=== PATIENT | male | born 1980 | race Caucasian/White ===

== ENCOUNTER 2019-09-01 02:24 | Emergency (ER) | payer SELFPAY ==
[~2019-09-01] VITALS: Ht 177 cm; Wt 108.0 kg
[~2019-09-01 02:24] MED LIST: ACYC800T PO; ONDA-42 SL; phentermine
[2019-09-01] MEDS ORDERED: ASPIRIN 81 MG CHEW (CHILDREN'S ASA) ONE (02:29)
[2019-09-01] MEDS ORDERED: NITROGLYCERIN 0.4 MG SL TABS BTL 25'S SL ONE (02:31)
--- NOTE | 2019-09-01 02:34 | ED Chest Pain ---
General Stated Complaint: CHEST PAIN Source: patient Exam Limitations: no limitations History of Present Illness Date Seen by Provider: Sep 01, 2019 Time Seen by Provider: 02:25 Initial Comments Patient presents ER by private conveyance from home with his and chief complaint that about 2200 last night he began to experience some substernal midline chest pain nonradiating. The pain did not wake him as he was already asleep trying to go to sleep. He was not doing anything strenuous. He has been sweating ever since writhing in 10 out of 10 pain. He says it is pressure and crushing. He is not having any nausea fevers, shortness of breath, cough. He does not have a history of coronary disease but he does have high blood pressure and high cholesterol for which she is on medicines. He follows with Dr. Rich. 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 He is not feeling any palpitations, racing heart rate. He has a grandfather who in his 50s of heart attack but no primary family members. He denies diabetes, thyroidism, previous coronary disease or smoking. He does chew tobacco about a can per day. He denies any recreational drugs. Drinks beer on occasion with his last drink being 3 days ago. Allergies and Home Medications Allergies Coded Allergies: No Known Drug Allergies (Unverified , 02/24/14) Home Medications Acyclovir 800 Mg Tablet, 800 MG PO DAILY, (Reported) Ondansetron Hcl 4 Mg Tab, 4 MG SL Q4H FOR NAUSEA AND VOMITING Prescribed by: KARI COSTELLO on 02/24/14 1247 Patient Home Medication List Home Medication List Reviewed: Yes Review of Systems Review of Systems Constitutional: No chills; diaphoresis; No fever EENTM: No Blurred Vision, No Double Vision Respiratory: Denies Cough, Denies Shortness of Air Cardiovascular: See HPI, Chest Pain; Denies Edema, Denies Irregular Heart Rate, Denies Lightheadedness Gastrointestinal: Denies Abdomen Distended, Denies Abdominal Pain Genitourinary: Denies Burning, Denies Discharge Musculoskeletal: No back pain, No joint pain Skin: No pruritus, No rash Psychiatric/Neurological: Denies Headache, Denies Numbness, Denies Paresthesia Endocrine: Excessive Sweating; Denies Flushing All Other Systems Reviewed Negative Unless Noted: Yes Past Qarfnaw-Jjurqy-Fmwvmf Hx Patient Social History Alcohol Use: Occasionally Uses Alcohol Beverage of Choice: Beer Recreational Drug Use: No Smoking Status: Never a Smoker Type Used: Smokeless Tobacco (1 can per day) Recent Foreign Travel: No Contact w/Someone Who Travel: No Physical Exam Vital Signs Vital Signs - First Documented 09/01/19 02:24 Temp 36.2 Pulse 60 Resp 16 B/P (MAP) 155/96 (115) Pulse Ox 99 O2 Delivery Room Air Capillary Refill : Height, Weight, BMI Height: 5'11" Weight: 230lbs. oz. 104.958063pu; BMI Method:Stated General Appearance: Anxious, Moderate Distress HEENT: PERRL/EOMI, Pharynx Normal, Moist Mucous Membranes Neck: Full Range of Motion, Normal Inspection Respiratory: Chest Non Tender, Lungs Clear, Normal Breath Sounds, No Accessory Muscle Use, No Respiratory Distress Cardiovascular: Regular Rate, Rhythm, No Edema, No Murmur, Normal Peripheral Pulses Gastrointestinal: Normal Bowel Sounds, Non Tender, Soft Extremity: Normal Capillary Refill, Normal Inspection Neurologic/Psychiatric: Alert, Oriented x3, No Motor/Sensory Deficits Skin: Normal Color, Warm/Dry Progress/Results/Core Measures Results/Orders Lab Results Laboratory Tests Test 09/01/19 02:32 Range/Units White Blood Count 11.5 H 4.3-11.0 10^3/uL Red Blood Count 5.21 4.35-5.85 10^6/uL Hemoglobin 16.8 13.3-17.7 G/DL Hematocrit 47 40-54 % Mean Corpuscular Volume 91 80-99 FL Mean Corpuscular Hemoglobin 32 25-34 PG Mean Corpuscular Hemoglobin Concent 36 32-36 G/DL Red Cell Distribution Width 11.7 10.0-14.5 % Platelet Count 262 130-400 10^3/uL Mean Platelet Volume 10.0 7.4-10.4 FL Neutrophils (%) (Auto) 53 42-75 % Lymphocytes (%) (Auto) 33 12-44 % Monocytes (%) (Auto) 10 0-12 % Eosinophils (%) (Auto) 4 0-10 % Basophils (%) (Auto) 1 0-10 % Neutrophils # (Auto) 6.1 1.8-7.8 X 10^3 Lymphocytes # (Auto) 3.7 1.0-4.0 X 10^3 Monocytes # (Auto) 1.1 H 0.0-1.0 X 10^3 Eosinophils # (Auto) 0.5 H 0.0-0.3 10^3/uL Basophils # (Auto) 0.1 0.0-0.1 10^3/uL Prothrombin Time 12.1 L 12.2-14.7 SEC INR Comment 0.9 0.8-1.4 Activated Partial Thromboplast Time 26 24-35 SEC D-Dimer 0.37 0.00-0.49 UG/ML Sodium Level 137 135-145 MMOL/L Potassium Level 4.2 3.6-5.0 MMOL/L Chloride Level 96 L 98-107 MMOL/L Carbon Dioxide Level 29 21-32 MMOL/L Anion Gap 12 5-14 MMOL/L Blood Urea Nitrogen 13 7-18 MG/DL Creatinine 1.14 0.60-1.30 MG/DL Estimat Glomerular Filtration Rate > 60 BUN/Creatinine Ratio 11 Glucose Level 120 H 70-105 MG/DL Calcium Level 10.0 8.5-10.1 MG/DL Corrected Calcium 8.5-10.1 MG/DL Magnesium Level 2.1 1.6-2.4 MG/DL Total Bilirubin 0.5 0.1-1.0 MG/DL Aspartate Amino Transf (AST/SGOT) 27 5-34 U/L Alanine Aminotransferase (ALT/SGPT) 38 0-55 U/L Alkaline Phosphatase 74 40-136 U/L Myoglobin 53.0 10.0-92.0 NG/ML Troponin I < 0.30 <0.30 NG/ML Pro-B-Type Natriuretic Peptide 36.7 <75.0 PG/ML Total Protein 7.6 6.4-8.2 GM/DL Albumin 4.8 H 3.2-4.5 GM/DL Lipase 30 8-78 U/L My Orders Orders - MAYELIN WEATHERS Ekg Tracing (09/01/19 02:27) Continuous Ekg Monitoring (09/01/19 02:27) Aspirin Chewable Tablet (Baby Aspirin Ch (09/01/19 02:29) Cbc With Automated Diff (09/01/19 02:33) Magnesium (09/01/19 02:33) Chest 1 View Ap/Pa Only (09/01/19 02:33) Ekg Tracing (09/01/19 02:33) Comprehensive Metabolic Panel (09/01/19 02:33) Myoglobin Serum (09/01/19 02:33) Protime With Inr (09/01/19 02:33) Partial Thromboplastin Time (09/01/19 02:33) O2 (09/01/19 02:33) Lipid Panel (09/02/19 06:00) Aspirin Chewable Tablet (Baby Aspirin Ch (09/01/19 02:45) Nitroglycerin 0.4 Mg Btl 25's (Nitrostat (09/01/19 02:45) Ed Iv/Invasive Line Start (09/01/19 02:33) Lipase (09/01/19 02:33) Fibrin Degradation Products (09/01/19 02:33) Troponin I Fs (09/01/19 02:33) Probnp Fs (09/01/19 02:33) Nitroglycerin 0.4 Mg Btl 25's (Nitrostat (09/01/19 02:31) Morphine Injection (Morphine Injection (09/01/19 02:39) Morphine Injection (Morphine Injection (09/01/19 02:37) Morphine Injection (Morphine Injection (09/01/19 02:45) Ondansetron Injection (Zofran Injectio (09/01/19 02:45) Ondansetron Injection (Zofran Injectio (09/01/19 02:44) Ct Angio Chest W (09/01/19 02:55) Iohexol Injection (Omnipaque 350 Mg/Ml 1 (09/01/19 03:15) Received Contrast (Hold Metformin- Contr (09/01/19 03:15) Sodium Chloride Flush (Catheter Flush Sy (09/01/19 03:15) Ns (Ivpb) (Sodium Chloride 0.9% Ivpb Bag (09/01/19 03:15) Morphine Injection (Morphine Injection (09/01/19 03:08) Ua Culture If Indicated (09/01/19 03:14) Drug Screen Stat (Urine) (09/01/19 03:14) Pantoprazole Injection (Protonix Injecti (09/01/19 03:30) Fentanyl Injection (Sublimaze Injection (09/01/19 03:45) Ketorolac Injection (Toradol Injection) (09/01/19 04:30) Rx-Oxycodone/Apap 5-325 Mg (Rx-Percocet (09/01/19 04:30) Rx-Ondansetron Po (Rx-Zofran Po) (09/01/19 04:27) Medications Given in ED Current Medications Medications Dose Ordered Sig/Enrique Route Start Time Stop Time Status Last Admin Dose Admin Aspirin 324 mg ONCE ONCE PO 09/01/19 02:45 09/01/19 02:46 DC 09/01/19 02:32 324 MG Fentanyl Citrate 50 mcg ONCE ONCE IVP 09/01/19 03:45 09/01/19 03:46 DC 09/01/19 03:39 50 MCG Iohexol 125 ml ONCE ONCE IV 09/01/19 03:15 09/01/19 03:16 DC 09/01/19 03:31 125 ML Nitroglycerin 0.4 mg UD PRN SL 09/01/19 02:45 09/01/19 02:33 0.4 MG Ondansetron HCl 8 mg ONCE ONCE IVP 09/01/19 02:45 09/01/19 02:46 DC 09/01/19 02:50 8 MG Pantoprazole 40 mg ONCE ONCE IV 09/01/19 03:30 09/01/19 03:31 DC 09/01/19 03:39 40 MG Sodium Chloride 10 ml NEEDED PRN IV 09/01/19 03:15 09/01/19 03:31 10 ML Sodium Chloride 100 ml ONCE ONCE IV 09/01/19 03:15 09/01/19 03:16 DC 09/01/19 03:31 80 ML Vital Signs/I&O 09/01/19 02:24 Temp 36.2 Pulse 60 Resp 16 B/P (MAP) 155/96 (115) Pulse Ox 99 O2 Delivery Room Air Progress Progress Note #1: Time: 02:44 Progress Note Nitroglycerin did not help his pain. 4 of morphine made a modest dent in his pain. Plan to give him another 4 mg as well as some Zofran is to begin to be na useated after the morphine was given. He is satting 99% on room air. He is not writhing as much now. Other possibilities include pulmonary embolism however he is not tachycardic nor hypoxic. He does not look like marfanoid so dissection is far less likely at his age. We have established 2 IVs and labs. Initial EKG has a lot of artifact. As soon as we get him relax enough we will obtain a better EKG. He has good breath sounds bilaterally and no evidence of pneumothorax on chest x-ray. Is a poorly penetrated a to P1 view chest x-ray but there may be some widening mediastinum. He has not been having vomiting or a history consistent with Boerhaave's or mediastinitis. He does not have muffled cardiac sounds. He does not have a widened pulse pressure with a blood pressure currently 155/96. ACS is still top on the differential. Progress Note #2: Time: 02:57 Progress Note With a total of 8 mg of morphine we were able to control his pain sufficiently that we can get a good EKG. Second EKG did not do a straight any relevant ST changes. Plan to get a CT angiogram with contrast looking for evidence of aortic dissection, tamponade, PE or other emergent, life-threatening source of his severe chest pain. Patient is stable blood pressure 149/99. Bedside ultrasound failed to demonstrate any free fluid surrounding the heart. Progress Note #3: Time: 04:25 Progress Note Patient's pain to 6 out of 10. Regular her a shot of Toradol put him out on some oxycodone, ibuprofen and pantoprazole with Zofran as needed. Plan to get a outpatient ultrasound today or tomorrow and follow-up with Dr. Rich. Offered to set him up surgeon but he prefer to use his primary care provider at this time. Initial ECG Impression Date: Sep 01, 2019 Initial ECG Impression Time: 02:28 Initial ECG Rate: 64 Initial ECG Rhythm: Normal Sinus Initial ECG Intervals: Normal Initial ECG Impression: Normal, Nonspecific Changes Initial ECG Comparisson: No Previous ECG Available Comment Some respiratory motion artifact. In the lateral leads there is about a half to [address] elevation in leads V4, V5 and V6. This could correlate to ischemia. EKG : EKG Time: 02:52 Rate: 51 Rhythm: Normal Sinus Intervals: Normal ECG Comparisson: Unchanged ECG Impression: Normal, Nonspecific Changes Comment No clinically relevant ST elevation or depression. Diagnostic Imaging Diagonstic Imaging: Xray Plain Films/CT/US/NM/MRI: chest (1v) Comments No acute cardiopulmonary processes noted. Reviewed: Reviewed by Me Diagonstic Imaging: CT Plain Films/CT/US/NM/MRI: chest (angiogram) Comments No pneumonia, pneumothorax, pulmonary embolism, pleural effusion, pericardial effusion. There is a copious amount of stones and sludge in the base of the gallbladder without any pericholecystic fluid or stranding or evidence of ductal dilatation or obstruction. No pulmonary embolism. Distended gallbladder with multiple stones. Correlate with a right upper quadrant ultrasound. Reviewed: Reviewed [place] Study, Reviewed by Me Departure Impression Primary Impression: Choledocholithiasis Additional Impression: Biliary colic Disposition: HOME, SELF-CARE Condition: Improved Departure-Patient Inst. Decision time for Depature: 04:26 Referrals: MADDY CALLAWAY DO NO,LOCAL PHYSICIAN (PCP) Primary Care Physician PREET RICH MD Patient Instructions: Cholecystectomy, Laparoscopic Surgery, Gallstones (DC) Add. Discharge Instructions: You have stones in your gallbladder that will occasionally pass and when they do they can be quite painful and explain your symptoms. If you have pain use Tylenol 650 mg every 8 hours in addition to ibuprofen 800 mg every 8 hours. Oxycodone 1 tablet every 4 hours as needed for breakthrough pain. Ondansetron one tablet under the tongue every 6 hours as needed for nausea. Pantoprazole 40 mg or omeprazole 40 mg daily. Call this morning to set up an outpatient ultrasound. Follow-up with your primary care doctor or the general surgeon Dr. Callaway for ultrasound results and management of gallstones. Do not eat greasy, spicy, dairy foods. Return to the ER. You have intractable nausea, vomiting, pain or fever despite medications. Scripts Pantoprazole Sodium (Pantoprazole Sodium) 40 Mg Tablet.dr 40 MG PO DAILY for 30 Days, #30 TAB 0 Refills Prov: MAYELIN WEATHERS 09/01/19 Ondansetron (Ondansetron Odt) 4 Mg Tab.rapdis 4 MG PO Q6H PRN for NAUSEA/VOMITING, #15 TAB 0 Refills Prov: MAYELIN WEATHERS 09/01/19 Oxycodone HCl/Acetaminophen (Oxycodone-Acetaminophen 5-325) 1 Each Tablet 1-2 EACH PO Q4H PRN for PAIN-MODERATE MDD 6 for 3 Days, #20 TAB 0 Refills Prov: MAYELIN WEATHERS 09/01/19 Work/School Note: Work Release Form Date Seen in the Emergency Department: Sep 01, 2019 Return to Work: Sep 03, 2019 Restrictions: No Restrictions Copy Copies To 1: MADDY CALLAWAY DO; PREET RICH MD, TITUS J Sep 01, 2019 02:34 POS
[2019-09-01] MEDS ORDERED: morphine INJ 10 MG/ML 1ML (SYR OR VIAL) ONE (02:37)
[2019-09-01] MEDS ORDERED: morphine INJ 10 MG/ML 1ML (SYR OR VIAL) IVP STA ×3 (02:39→03:08)
[2019-09-01 02:40] LABS: WHITE BLOOD COUNT 11.5 10^3/uL (4.3-11.0)
[2019-09-01 02:41] LABS: BASOPHILS # (AUTO) 0.1 10^3/uL (0.0-0.1); BASOPHILS % (AUTO) 1 % (0-10); EOSINOPHILS # (AUTO) 0.5 10^3/uL (0.0-0.3); EOSINOPHILS % (AUTO) 4 % (0-10); HEMATOCRIT 47 % (40-54); HEMOGLOBIN 16.8 G/DL (13.3-17.7); LYMPHOCYTES # (AUTO) 3.7 X 10^3 (1.0-4.0); LYMPHOCYTES % (AUTO) 33 % (12-44); MEAN CORPUSCULAR HEMOGLOBIN 32 PG (25-34); MEAN CORPUSCULAR HGB CONC 36 G/DL (32-36); MEAN CORPUSCULAR VOLUME 91 FL (80-99); MONOCYTES # (AUTO) 1.1 X 10^3 (0.0-1.0); MONOCYTES % (AUTO) 10 % (0-12); NEUTROPHILS # (AUTO) 6.1 X 10^3 (1.8-7.8); NEUTROPHILS % (AUTO) 53 % (42-75); PLATELET COUNT 262 10^3/uL (130-400); RED CELL DISTRIBUTION WIDTH 11.7 % (10.0-14.5)
[2019-09-01] MEDS ORDERED: ONDANSETRON 4 MG/2 ML (SDV) Z0FRAN ONE (02:44)
[2019-09-01] MEDS ORDERED: ONDANSETRON 4 MG/2 ML (SDV) Z0FRAN IVP ONE (02:45)
[2019-09-01] MEDS ORDERED: ASPIRIN 81 MG CHEW (CHILDREN'S ASA) PO ONE (02:45)
[2019-09-01] MEDS ORDERED: NITROGLYCERIN 0.4 MG SL TABS BTL 25'S SL PRN (02:45)
[2019-09-01 02:56] LABS: INR 0.9 (0.8-1.4); PROTHROMBIN TIME PATIENT 12.1 SEC (12.2-14.7)
[2019-09-01 03:04] LABS: ALKALINE PHOSPHATASE 74 U/L (40-136); BILIRUBIN,TOTAL 0.5 MG/DL (0.1-1.0); BUN/CREATININE RATIO 11; CARBON DIOXIDE 29 MMOL/L (21-32); CHLORIDE 96 MMOL/L (98-107); CREATININE SERUM 1.14 MG/DL (0.60-1.30); GFR ESTIMATED > 60; GLUCOSE 120 MG/DL (70-105); MAGNESIUM 2.1 MG/DL (1.6-2.4); POTASSIUM 4.2 MMOL/L (3.6-5.0); SODIUM 137 MMOL/L (135-145)
[2019-09-01 03:05] LABS: ALANINE AMINOTRANSFERASE 38 U/L (0-55); ALBUMIN 4.8 GM/DL (3.2-4.5); LIPASE 30 U/L (8-78); TOTAL PROTEIN 7.6 GM/DL (6.4-8.2)
[2019-09-01] MEDS ORDERED: IOHEXOL 350 MG/ML 150 ML (OMNIPAQUE 350) VIAL IV ONE (03:15)
[2019-09-01] MEDS ORDERED: NS 100 ML (IVPB) BAG IV ONE (03:15)
[2019-09-01] MEDS ORDERED: HOLD METFORMIN - RECEIVED CONTRAST 20 ML VIAL IV SCH (03:15)
[2019-09-01] MEDS ORDERED: CATHETER FLUSH 10 ML SYR IV PRN (03:15)
[2019-09-01] MEDS ORDERED: PANTOPRAZOLE 40 MG (PROTONIX) VIAL IV ONE (03:30)
[2019-09-01] MEDS ORDERED: fentaNYL INJECTION 100 MCG/2 ML AMP IVP ONE (03:45)
[2019-09-01] MEDS ORDERED: RX-ONDANSETRON 4 MG ODT (ZOFRAN) PPK #4 PO STA (04:27)
[2019-09-01] MEDS ORDERED: RX-OXYCODONE/APAP 5-325 MG #4 TAB PK PO PRN (04:30)
[2019-09-01] MEDS ORDERED: KETOROLAC 30 MG/ML VIAL IVP ONE (04:30)
[2019-09-01] MEDS ORDERED: PANT40TA3 PO (04:31)
[2019-09-01] MEDS ORDERED: OXYC-471 PO (04:31)
[2019-09-01] MEDS ORDERED: ONDA4TAB11 PO (04:31)
[2019-09-01 04:41] VITALS: BP 153/94
--- NOTE | 2019-09-01 06:23 | Diagnostic Imaging Report ---
PROCEDURE: CT angiography of the chest with contrast. TECHNIQUE: Multiple contiguous axial images were obtained through the chest after uneventful bolus administration of intravenous contrast. 3D reconstructed CTA MIP acquisitions were also performed. Auto Exposure Controls were utilized during the CT exam to meet ALARA standards for radiation dose reduction. INDICATION: Shortness of breath, chest pain, pulmonary embolism COMPARISON: None FINDINGS: The heart, pulmonary arteries and aorta appear grossly normal. No pulmonary embolism is seen. There is no lymphadenopathy. The lungs are clear. There is no pericardial or pleural effusion noted. No focal infiltrate is identified. There is no pneumothorax. Osseous structures are age-appropriate. Visualized upper abdominal solid organs are normal. Multiple gallstones are present. IMPRESSION: 1. Negative CT angio chest. 2. Cholelithiasis without cholecystitis. Agree with preliminary report Dictated by: Dictated on workstation # [id number]
--- NOTE | 2019-09-01 06:24 | Diagnostic Imaging Report ---
INDICATION: Shortness of breath, chest pain COMPARISON: None FINDINGS: Single view of the chest demonstrates clear lungs bilaterally. The heart is normal. There is no pneumothorax. The osseous structures are normal. IMPRESSION: Negative chest Dictated by: Dictated on workstation # [id number]
== END 2019-09-01 04:41 | disposition home or self-care (01) ==
LOC: EDUNIT# 02:24 → ER FS 02:27
DX: K80.50 Calculus of bile duct without cholangitis or cholecystitis without obstruction (principal); F17.220 Nicotine dependence, chewing tobacco, uncomplicated
CPT/HCPCS: 36415; 71045; 71275; 80053; 83690; 83735; 83874; 83880; 84484; 85025; 85379; 85610; 85730; 93005

== ENCOUNTER 2019-10-01 05:40 | Outpatient (CLI) | payer OTHER ==
[~2019-10-01] VITALS: Ht 177.8 cm; Wt 111.4 kg
[~2019-10-01 05:40] MED LIST changes: +ONDA4TAB11 PO; +OXYC-471 PO; +PANT40TA3 PO
[2019-10-01] MEDS ORDERED: PANT40TA3 PO (10:22)
[2019-10-01] MEDS ORDERED: AMOX500C2 PO (10:22)
[2019-10-01] MEDS ORDERED: METO-370 PO (10:22)
== END 2019-10-01 10:28 | disposition home or self-care (01) ==
LOC: PREOP 05:40
PROVIDERS: ATTEND Surgery
DX: Z01.818 Encounter for other preprocedural examination (principal)

== ENCOUNTER 2019-10-03 09:33 | Day surgery (SDC) | payer OTHER ==
[2019-10-03] VITALS (11 sets, daily range): BP systolic 122–147; BP diastolic 77–98
[~2019-10-03] VITALS: Ht 177.8 cm; Wt 111.4 kg
[~2019-10-03 09:33] MED LIST changes: +AMOX500C2 PO; +METO50TA7 PO
[2019-10-03] MEDS ORDERED: IOPAMIDOL 61% 30 ML (ISOVUE 300) VIAL IV ONE (09:35)
[2019-10-03] MEDS ORDERED: BUP/EPI 0.5% 1:200,000 (SENSORCAINE) 30 ML VIAL ONE (09:35)
[2019-10-03] MEDS ORDERED: ceFAZolin 2 GM/50 ML NS 50 ML IV ONE (09:45)
--- NOTE | 2019-10-03 10:19 | Progress Note-Pre Operative ---
Pre-Operative Progress Note H&P Reviewed The H&P was reviewed, patient examined and no changes noted. Time Seen by Provider: 10:17 Date H&P Reviewed: Oct 03, 2019 Time H&P Reviewed: 10:16 Pre-Operative Diagnosis: Cholelithiasis/Cholecystitis MADDY CALLAWAY DO Oct 03, 2019 10:19
[2019-10-03] MEDS ORDERED: LIDOCAINE PF 2% 5 ML (XYLOCAINE) VIAL ONE (10:23)
[2019-10-03] MEDS ORDERED: MIDAZOLAM 2 MG/2 ML (VERSED) VIAL ONE (10:23)
[2019-10-03] MEDS ORDERED: NEOSTIGMINE 3 MG/3 ML VIAL ONE (10:23)
[2019-10-03] MEDS ORDERED: ONDANSETRON 4 MG/2 ML (SDV) Z0FRAN ONE (10:23)
[2019-10-03] MEDS ORDERED: ROCURONIUM 10 MG/ML 5 ML SYRINGE IV ONE (10:23)
[2019-10-03] MEDS ORDERED: DEXAMETHASONE 10 MG/ML (DECADRON) 1 ML VIAL ONE (10:23)
[2019-10-03] MEDS ORDERED: SEVOFLURANE (ULTANE) 15 ML INHAL SOLN ONE (10:23)
[2019-10-03] MEDS ORDERED: proPOfol 200 MG/20 ML (DIPRIVAN) VIAL IV ONE (10:23)
[2019-10-03] MEDS ORDERED: fentaNYL INJECTION 100 MCG/2 ML AMP ONE ×2 (10:23→11:35)
[2019-10-03] MEDS ORDERED: GLYCOPYRROLATE 0.2 MG/ML (ROBINUL) 2 ML VIAL ONE (10:23)
[2019-10-03] MEDS: LACTATED RINGERS 1,000 ML IV PRN ×2 (10:27→11:29)
--- NOTE | 2019-10-03 11:50 | Progress Note-Post Operative ---
Post-Operative Progess Note Surgeon (s)/Auto Overhauler (s) Surgeon MADDY CALLAWAY DO Auto Overhauler: Yury Pre-Operative Diagnosis Cholelithiasis/Cholecystitis Post-Operative Diagnosis same pending Procedure & Operative Findings Date of Procedure 10/03/19 Procedure Performed/Findings Lap ivana with IOC Anesthesia Type GET Estimated Blood Loss Estimated blood loss (mL): scant Specimens/Packing Specimens Removed GB and contents MADDY CALLAWAY DO Oct 03, 2019 11:50
[2019-10-03] MEDS ORDERED: ACHD5005 PO (11:51)
--- NOTE | 2019-10-03 11:52 | Discharge Inst-Surgical ---
Discharge Inst-Surgical Depart Medication/Instructions New, Converted or Re-Newed RX: RX Given to Pt/Family Patient Instructions Follow up Appt: Make appointment for 1 week. [phone] Instructions: No lifting greater than 20 pounds. No strenuous activity. May shower in 24 hours, no tub bath or soaking. Use incentive spirometer at home as directed. No Smoking Skin/Wound Care: May remove bandages in am. You need to leave the Dermabond on incision it will fall off on it's own. Symptoms to Report: Appetite Changes, Extremity Discoloration, Numbness/Tingling, Swelling Increased, Bleeding Excessive, Eyesight Changes, Pain Increased, Urine Color Change, Constipation(Persistent), Fever over 101 degree F, Pain/Pressure in chest, Urinating Difficulty, Cough Up/Vomit Blood, Heart Beat Irreg/Pounding, Pain/Pressure in jaw, Cramps in feet or legs, Lightheadedness, Pain/Pressure in shoulder, Diarrhea(Persistent), Memory Changes Suddenly, Questions/Concerns, Weight gain consecutive days, Dizziness/Fainting, Nausea/Vomiting, Shortness of Breath, Weight gain over 2 pounds If questions or concerns contact your physician Or seek help at emergency department. Activity Activity as Tolerated: Yes Activity Instructions: Avoid Stress to Incision Driving Instructions: No Driving/Refer to Diet Discharge Diet: Avoid Fatty Foods, Low Fat/Low Cholesterol Diet After 24 Hours: Clear Liquid if Nauseous If Any Problems/Questions/Issu: Contact Your Physician, Go to Emergency Room Skin/Wound Care Infection Signs and Symptoms: Increased Redness, Foul Odor of Wound, Increased Drainage, Skin Itchy or Has a Rash, Increased Swelling, Temperature Above 101 F Wound Care Comment: heating pad to shoulder or neck for pain Bathing Instructions: Shower Stitches/[place]/Dermabond Dis: Dermabond Ice Pack: Ice On and Off Site (as needed for pain at incisions) MADDY CALLAWAY DO Oct 03, 2019 11:52
[2019-10-03] MEDS ORDERED: KETOROLAC 30 MG/ML VIAL ONE (12:02)
[2019-10-03] MEDS ORDERED: HYDROmorphone 2 MG/ML VIAL (DILAUDID) ONE (12:08)
--- NOTE | 2019-10-03 12:14 | Diagnostic Imaging Report ---
INDICATION: Fluoroscopy for intraoperative cholangiogram. Fluoroscopy was provided in the OR during intraoperative cholangiogram. 13 seconds of fluoroscopic time was utilized. Images demonstrate contrast being injected via the cystic duct remnant. Intrahepatic and extrahepatic bile ducts appear normal caliber. No filling defects are seen. There is contrast flowing into the duodenum. IMPRESSION: Fluoroscopy during intraoperative cholangiogram. Dictated by: Dictated on workstation # [id number]
[2019-10-03] MEDS ORDERED: morphine INJ 10 MG/ML 1ML (SYR OR VIAL) IVP ONE (12:15)
[2019-10-03] MEDS ORDERED: KETOROLAC 30 MG/ML VIAL IVP ONE (12:15)
[2019-10-03] MEDS ORDERED: HYDROmorphone 2 MG/ML VIAL (DILAUDID) IV ONE (12:15)
[2019-10-03] MEDS ORDERED: MEPERIDINE (DEMEROL) INJ 50 MG/ML IVP ONE (12:15)
[2019-10-03] MEDS ORDERED: ONDANSETRON 4 MG/2 ML (SDV) Z0FRAN IVP PRN (12:15)
--- NOTE | 2019-10-03 19:04 | OPERATIVE REPORT ---
DATE OF SERVICE: 10/03/2019 PREOPERATIVE DIAGNOSIS: Cholelithiasis, cholecystitis. POSTOPERATIVE DIAGNOSIS: Cholelithiasis, cholecystitis. PROCEDURE: Laparoscopic cholecystectomy, intraoperative cholangiogram. SURGEON: Víctor Gamboa DO. FARMWORKER: Devon Cotton DO. ANESTHESIA: General endotracheal tube. SPECIMEN: Gallbladder and contents. BLOOD LOSS: Scant. FLUIDS: Per anesthesia. POSTOPERATIVE CONDITION: Stable. INDICATION FOR PROCEDURE: The patient is a 38-year-old male who has been having some right upper quadrant pain, went to the emergency room for, and they did a CAT scan, which showed some gallstones. FINDINGS: The patient had some mild adhesions to the gallbladder, which usually indicates previous gallbladder attacks. PROCEDURE NOTE: After informed consent was obtained, the patient was brought to the operating room, placed on the operating table in supine position, sterilely prepped and draped in normal fashion. Local lidocaine was used to infiltrate the skin above the umbilicus and made an incision with #11 blade, carried down through the skin and subcutaneous tissue, then deepened down to subcutaneous tissue with Bovie electrocautery down to fascia. Fascia was incised with Bovie electrocautery and bluntly entered the abdomen, swept a finger around, placed 0 Vicryl [id number] suture and placed an 11 mm trocar port under direct visualization. Created pneumoperitoneum, I then placed 3 more ports in normal fashion using local lidocaine, 11 blade for stab incision and the VersaStep system, all done under direct visualization, one subxiphoid and 2 in the right upper quadrant. The patient was then placed slightly reverse Trendelenburg and rotated to left, able to visualize the gallbladder, there was some adhesions to it. This usually indicates previous cholecystitis attacks. Able to grasp the fundus and taken in superior direction, then grasped down Jacob's pouch and pulled in inferolateral direction, started dissecting out the cystic duct and cystic artery, able to get around the cystic duct and the cystic artery and placed 1 clip distally on the cystic duct and one distally, one proximally on the cystic artery. Cut the cystic duct prison through Metzenbaum scissors. Placed a cholangiogram catheter and shot a cholangiogram. Good spillage of dye down the common bile duct into the small intestine as well as up into common hepatic and right and left hepatic. At this point, I then removed the cholangiogram catheter, placed 2 clips proximally on the cystic duct and cut the cystic duct and cystic artery with Metzenbaum scissors, started removing the gallbladder from bed of liver with the L-hook cautery. Once this was completely removed, placed a bag in the abdomen, then placed the gallbladder in the bag and then removed this through supraumbilical incision. Placed the port back in the abdomen, copiously irrigated with normal saline, took pictures of this. At this point, I then placed the patient supine, removed all ports under direct visualization, allowed pneumoperitoneum to escape as well as suctioned it out. I then closed the supraumbilical incision, closing the fascia with 0 Vicryl suture previously placed. Copiously irrigated all incisions with normal saline and closed the three small 5 mm incisions with single interrupted 4-0 undyed Monocryl subcuticular stitch. Closed the supraumbilical incision with 3 interrupted 4-0 undyed Monocryl subcuticular stitches. Area was cleaned and dried. Dermabond placed as well as Band-Aids. The patient tolerated the procedure. Sponge, instrument and needle count correct at the end of the case. Dr. Cotton assisted in this case to make incisions, close incisions as well as identify anatomy, hold anatomy away. Job ID: [id number] DocumentID: [id number] Dictated Date: 10/03/2019 11:49:51 Ep Tech Date: 10/03/2019 19:03:49 Dictated By: VÍCTOR GAMBOA DO
== END 2019-10-03 14:45 | disposition home or self-care (01) ==
LOC: SDC 09:33
PROVIDERS: ATTEND Surgery
DX: K80.10 Calculus of gallbladder with chronic cholecystitis without obstruction (principal); K82.8 Other specified diseases of gallbladder; I10 Essential (primary) hypertension; Z79.899 Other long term (current) drug therapy
CPT/HCPCS: 87081; 94664

== ENCOUNTER → 2020-05-04 | Outpatient (CLI) | payer OTHER ==
[~2020-05-04] MED LIST changes: +ACHD5005 PO
--- NOTE | 2020-05-04 10:12 | Diagnostic Imaging Report ---
INDICATION: Foot pain. COMPARISON: None. FINDINGS: Three views of the left foot were obtained. There is small extraosseous calcification adjacent to the anterior inferior corner of the distal tibia on the lateral view. This, however, is well-corticated. No other acute appearing osseous abnormality is seen. The joint spaces are maintained. The soft tissue structures are unremarkable. No unexpected radiopaque foreign bodies are seen. IMPRESSION: Small extraosseous calcification along the anterior inferior corner of the distal tibia. Given its well corticated appearance, a nonacute osseous fragment is favored. A small avulsed fracture fragment is felt to be less likely but correlation with point tenderness is recommended. Dictated by: Dictated on workstation # [id number]
== END ==
LOC: RAD FS 09:44
PROVIDERS: ATTEND Nurse Practitioner
DX: M25.872 Other specified joint disorders, left ankle and foot (principal); M79.672 Pain in left foot
CPT/HCPCS: 73630

== ENCOUNTER 2022-07-30 12:08 | Emergency (ER) | payer OTHER ==
[~2022-07-30] VITALS: Ht 177.8 cm; Wt 116.0 kg
[~2022-07-30 12:08] MED LIST changes: -OXYC-471 PO; +OXYC1TAB11 PO; -PANT40TA3 PO; +PANT40TA52 PO
--- NOTE | 2022-07-30 12:18 | ED Back Pain ---
General Stated Complaint: BACK PAIN History of Present Illness Date Seen by Provider: Jul 30, 2022 Time Seen by Provider: 12:18 Initial Comments 41-year-old male with no significant PMH is here with complaints of lower back and bilateral flank pain, which began the other day when he got out of his truck. 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 Patient states that he feels better when he sitting down but has difficulty getting up due to the increased pain with that motion. Denies tr auma, falls, injuries to his back, bowel or bladder disturbances, dysuria, fever, radiation of pain down his legs. Allergies and Home Medications Allergies Coded Allergies: No Known Drug Allergies (Unverified , 02/24/14) Patient Home Medication List Home Medication List Reviewed: Yes Amoxicillin (Amoxicillin) 500 Mg Capsule, 500 MG PO BID, (Reported) Entered as Reported by: LAURA GIBSON on 10/01/19 1022 Hydrocodone Bit/Acetaminophen (Lortab 5 Mg Tablet) 1 Tab Tab, 1 TAB PO Q6H PRN for PAIN-MODERATE Prescribed by: MADDY CALLAWAY on 10/03/19 1151 Metoprolol Succinate (Metoprolol Succinate) 50 Mg Tab.er.24h, 50 MG PO HS, (Reported) Entered as Reported by: LAURA GIBSON on 10/01/19 1022 Pantoprazole Sodium (Pantoprazole Sodium) 40 Mg Tablet.dr, 40 MG PO DAILY PRN for HEARTBURN, (Reported) Entered as Reported by: LAURA GIBSON on 10/01/19 1022 Review of Systems Constitutional: no symptoms reported EENTM: no symptoms reported Respiratory: no symptoms reported Cardiovascular: no symptoms reported Gastrointestinal: no symptoms reported Genitourinary: no symptoms reported Musculoskeletal: back pain Skin: no symptoms reported Psychiatric/Neurological: No Symptoms Reported Past Gabngeb-Iryvso-Gdgagr Hx Seasonal Allergies Seasonal Allergies: Yes Past Medical History Surgeries: Yes (tubes in ears) Respiratory: No Currently Using CPAP: No Currently Using BIPAP: No Cardiac: Yes Hypertension Neurological: No Genitourinary: No Gastrointestinal: Yes Gall Bladder Disease Musculoskeletal: No Endocrine: No HEENT: No Cancer: No Psychosocial: No Integumentary: No Blood Disorders: No Physical Exam Vital Signs Vital Signs - First Documented 07/30/22 12:10 Temp 36.0 Pulse 81 Resp 16 B/P (MAP) 135/78 (97) O2 Delivery Room Air Capillary Refill : Height, Weight, BMI Height: 5'11" Weight: 230lbs. oz. 104.320823tt; 35.23 BMI Method:Stated General Appearance: No Apparent Distress HEENT: PERRL/EOMI, Moist Mucous Membranes Neck: Full Range of Motion, Normal Inspection, Non Tender, Supple Cardiovascular: Regular Rate, Rhythm Respiratory: Lungs Clear Gastrointestinal: Normal Bowel Sounds, No Organomegaly, Non Tender, Soft Back: CVA Tenderness (L), CVA Tenderness (R), Muscle Spasm (In the L1-L3 area bilaterally) Extremity: Normal Range of Motion Neurologic/Psychiatric: Alert, Oriented x3, No Motor/Sensory Deficits Skin: Normal Color Progress/Results/Core Measures Results/Orders Lab Results Laboratory Tests Test 07/30/22 12:25 Range/Units Urine Color YELLOW Urine Clarity CLEAR Urine pH 5.5 5-9 Urine Specific [place] >=1.030 1.016-1.022 Urine Protein NEGATIVE NEGATIVE Urine Glucose (UA) NEGATIVE NEGATIVE Urine Ketones NEGATIVE NEGATIVE Urine Nitrite NEGATIVE NEGATIVE Urine Bilirubin NEGATIVE NEGATIVE Urine Urobilinogen 1.0 < = 1.0 MG/DL Urine Leukocyte Esterase NEGATIVE NEGATIVE Urine RBC (Auto) NEGATIVE NEGATIVE Urine RBC 2-5 H /HPF Urine WBC RARE /HPF Urine Squamous Epithelial Cells NONE /HPF Urine Crystals NONE /LPF Urine Bacteria FEW H /HPF Urine Casts NONE /LPF Urine Mucus LARGE H /LPF Urine Culture Indicated YES Urine Opiates Screen NEGATIVE NEGATIVE Urine Oxycodone Screen POSITIVE H NEGATIVE Urine Methadone Screen NEGATIVE NEGATIVE Urine Propoxyphene Screen NEGATIVE NEGATIVE Urine Barbiturates Screen NEGATIVE NEGATIVE Ur Tricyclic Antidepressants Screen NEGATIVE NEGATIVE Urine Phencyclidine Screen NEGATIVE NEGATIVE Urine Amphetamines Screen POSITIVE H NEGATIVE Urine Methamphetamines Screen NEGATIVE NEGATIVE Urine Benzodiazepines Screen NEGATIVE NEGATIVE Urine Cocaine Screen NEGATIVE NEGATIVE Urine Cannabinoids Screen NEGATIVE NEGATIVE My Orders Orders - MATTHEW NOBLE MD Drug Screen Stat (Urine) (07/30/22 12:26) Ua Culture If Indicated (07/30/22 12:26) Ketorolac Injection (Toradol Injection) (07/30/22 12:30) Urine Culture (07/30/22 12:25) Ct Abdomen/Pelvis Wo (07/30/22 13:01) Medications Given in ED Current Medications Medications Dose Ordered Sig/Enrique Route Start Time Stop Time Status Last Admin Dose Admin Ketorolac Tromethamine 30 mg ONCE ONCE IM 07/30/22 12:30 07/30/22 12:31 DC 07/30/22 12:35 30 MG Vital Signs/I&O 07/30/22 12:10 Temp 36.0 Pulse 81 Resp 16 B/P (MAP) 135/78 (97) O2 Delivery Room Air Progress Progress Note : Progress Note 1.LUMBAR PARASPINAL MUSCLE SPASM/ ENTERITIS: - CT ABD: enteritis/ileitis versus contraction - UA/ UDS: positive for RBC's, Amphetamines, and marijuana - Advised to stop using marijuana - Toradol 30mg im STAT. Pt felt much better after this. - Advised OTC Ibuprofen Q6H and stagger with Tylenol Q4H prn pain. - Lidoderm patches, over the counter - Gentle stretching, heat application, and adequate water intake (8-10 glasses/ day) - Howell diet - Follow up with PCP within 7 days -The patient was seen in the ED, and treated appropriately to presentation at a specific point in time. Patient is informed that there is a possibility that dis ease and illness can evolve and change in acuity rapidly or slowly after patient is discharged from the ER. Precautionary advice given to the patient for immediate return to ER if symptoms worsen or do not resolve, and to seek emergency care sooner rather than later. Pt also advised on the importance of PCP follow up and compliance with management and follow up plan with PCP and/or specialist, as this is part of the management plan. Pt verbally expressed understanding. Initial ECG Rhythm: Normal Sinus, S.Jayce Initial ECG Intervals: Normal Initial ECG Impression: Normal Diagnostic Imaging Diagonstic Imaging: CT Plain Films/CT/US/NM/MRI: abdomen Comments [facility], [facility] [place], [place] NAME: SABRINA JOHNSON [facility] REC#: [id number] PT STATUS: REG ER : 1980 PHYSICIAN: MATTHEW NOBLE MD ADMIT DATE: 07/30/22/ER FS Draft Date of Exam:07/30/22 CT ABDOMEN/PELVIS WO Clinical indication: Patient with low back pain. Exam: CT exam of the abdomen and pelvis is performed without IV or oral contrast using stone protocol. Coronal and sagittal reformatted images were created. Auto Exposure Controls were utilized during the CT exam to meet ALARA standards for radiation dose reduction. Comparisons: None. Findings: Visualized lung bases are clear. There are degenerative spurs involving the lumbar spine. There is diffuse low-density seen throughout the liver, likely related to diffuse fatty infiltration liver. Gallbladder surgically absent. The liver is otherwise unremarkable. There is no intra-abdominal free air or free fluid. The spleen, pancreas, and adrenal glands are unremarkable. Both kidneys are unremarkable with no stone, mass, or hydronephrosis. Bladder is partially fluid-filled and otherwise unremarkable. There is wall thickening and decompressed appearance of the rectum. There is decompressed appearance of wall thickening of the terminal ileum. The appendix is unremarkable. There is no intestinal obstruction. There is wall thickening of multiple loops of jejunum which may be related to contraction. There is decompressed appearance of the stomach. There is no intra-abdominal free air or free fluid. The extra-abdominal and extrapelvic soft tissue structures are unremarkable. IMPRESSION: 1: There is decompressed appearance with wall thickening involving the terminal ileum and loops of the jejunum which may be related to enteritis/ileitis versus contraction. 2: There is wall thickening and decompressed appearance of the rectum and stomach which may be related to decompressed appearance. 3: The remainder of this exam shows no other significant abnormality. Gallbladder surgically absent. 4: There is diffuse fatty infiltration of the liver. Dictated on workstation # [id number] Dict: 07/30/22 1336 Trans: 07/30/22 1349 [id number] Interpreted by: OLIMPIA SCHRADER MD Electronically signed by: Departure Impression Primary Impression: Lumbar paraspinal muscle spasm Additional Impression: Enteritis Disposition: 01 HOME, SELF-CARE Condition: Improved Departure-Patient Inst. Referrals: SELFPREET MD (PCP) Primary Care Physician Patient Instructions: Viral Gastroenteritis, Adult (DC), Using Heat for Pain, Back Muscle Strain (DC), Muscle Spasms (DC) Add. Discharge Instructions: - Advised OTC Ibuprofen Q6H and stagger with Tylenol Q4H prn pain. - Lidoderm patches, over the counter - Gentle stretching, heat application, and adequate water intake (8-10 glasses/ day) - Howell diet - Follow up with PCP within 7 days -Patient is informed that there is a possibility that disease and illness can evolve and change in acuity rapidly or slowly after patient is discharged from the ER. Precautionary advice given to the patient for immediate return to ER if symptoms worsen or do not resolve, and to seek emergency care sooner rather than later. Pt also advised on the importance of PCP follow up and compliance with management and follow up plan with PCP and/or specialist, as this is part of the management plan. MATTHEW NOBLE MD Jul 30, 2022 12:18
[2022-07-30 12:30] LABS: BILIRUBIN,URINE NEGATIVE (NEGATIVE); CLARITY,URINE CLEAR; COLOR,URINE YELLOW; GLUCOSE, URINE (UA) NEGATIVE (NEGATIVE); KETONES,URINE NEGATIVE (NEGATIVE); LEUKOCYTE ESTERASE ,URINE NEGATIVE (NEGATIVE); NITRITE,URINE NEGATIVE (NEGATIVE); PH,URINE 5.5 (5-9); PROTEIN,URINE NEGATIVE (NEGATIVE)
[2022-07-30] MEDS ORDERED: KETOROLAC 30 MG/ML VIAL IM ONE (12:30)
[2022-07-30 12:32] LABS: BACTERIA,URINE FEW /HPF; WBC,URINE RARE /HPF
[2022-07-30 12:47] LABS: AMPHETAMINE SCREEN, URINE POSITIVE (NEGATIVE); BARBITURATE SCREEN URINE NEGATIVE (NEGATIVE); BENZODIAZEPINES SCREEN URINE NEGATIVE (NEGATIVE); CANNABINOID SCREEN, URINE NEGATIVE (NEGATIVE); COCAINE SCREEN URINE NEGATIVE (NEGATIVE); METHADONE STAT NEGATIVE (NEGATIVE); OPIATE SCREEN URINE NEGATIVE (NEGATIVE); OXYCODONE STAT POSITIVE (NEGATIVE); PROPOXYPHENE STAT NEGATIVE (NEGATIVE); TRICYCLIC ANTIDEPRESSANTS SCRE NEGATIVE (NEGATIVE)
--- NOTE | 2022-07-30 13:51 | Diagnostic Imaging Report ---
Clinical indication: Patient with low back pain. Exam: CT exam of the abdomen and pelvis is performed without IV or oral contrast using stone protocol. Coronal and sagittal reformatted images were created. Auto Exposure Controls were utilized during the CT exam to meet ALARA standards for radiation dose reduction. Comparisons: None. Findings: Visualized lung bases are clear. There are degenerative spurs involving the lumbar spine. There is diffuse low-density seen throughout the liver, likely related to diffuse fatty infiltration liver. Gallbladder is surgically absent. The liver is otherwise unremarkable. There is no intra-abdominal free air or free fluid. The spleen, pancreas, and adrenal glands are unremarkable. Both kidneys are unremarkable with no stone, mass, or hydronephrosis. Bladder is partially fluid-filled and otherwise unremarkable. There is wall thickening and decompressed appearance of the rectum. There is decompressed appearance of wall thickening of the terminal ileum. The appendix is unremarkable. There is no intestinal obstruction. There is wall thickening of multiple loops of jejunum which may be related to contraction. There is decompressed appearance of the stomach. There is no intra-abdominal free air or free fluid. The extra-abdominal and extrapelvic soft tissue structures are unremarkable. IMPRESSION: 1: There is decompressed appearance with wall thickening involving the terminal ileum and loops of the jejunum which may be related to enteritis/ileitis versus contraction. 2: There is wall thickening and decompressed appearance of the rectum and stomach which may be related to decompressed appearance. 3: The remainder of this exam shows no other significant abnormality. Gallbladder is surgically absent. 4: There is diffuse fatty infiltration of the liver. Dictated by: Dictated on workstation # [id number]
[2022-07-30 14:34] VITALS: BP 141/73
== END 2022-07-30 14:34 | disposition home or self-care (01) ==
LOC: EDUNIT# 12:08 → ER FS 12:10
DX: M62.830 Muscle spasm of back (principal); K52.9 Noninfective gastroenteritis and colitis, unspecified; Z28.310 Unvaccinated for COVID-19
CPT/HCPCS: 74176; 80306; 81000; 87088